=== PATIENT | female | born 1995 | race Caucasian/White ===

== ENCOUNTER 2019-09-15 03:08 | Emergency (ER) | payer BC ==
--- NOTE | 2019-09-15 03:12 | ERPHSYRPT ---
- History of Present Illness Time Seen by Provider: 09/15/19 03:11 Source: patient Exam Limitations: no limitations Physician History: 23 y/o white female presents with one day h/o left lower dental pain and associated swelling. pt could not get into her dentist. Timing/Duration: abrupt onset, days (1) ENT Location: dental Prearrival Treatment: over the counter meds Associated Symptoms: tooth pain Allergies/Adverse Reactions: No Known Drug Allergies Allergy (Verified 09/15/19 03:25) - Review of Systems Constitutional: No Symptoms Eyes: No Symptoms Ears, Nose, & Throat: Other (dental pain) Respiratory: No Symptoms Cardiac: No Symptoms Abdominal/Gastrointestinal: No Symptoms Genitourinary Symptoms: No Symptoms Musculoskeletal: No Symptoms Skin: No Symptoms Neurological: No Symptoms Psychological: No Symptoms Endocrine: No Symptoms Hematologic/Lymphatic: No Symptoms Immunological/Allergic: No Symptoms All Other Systems: Reviewed and Negative - Past Medical History Pertinent Past Medical History: Yes Neurological History: No Pertinent History ENT History: No Pertinent History Cardiac History: No Pertinent History Respiratory History: No Pertinent History Endocrine Medical History: No Pertinent History Musculoskeletal History: No Pertinent History GI Medical History: No Pertinent History History: No Pertinent History Psycho-Social History: No Pertinent History Female Reproductive Disorders: No Pertinent History - Past Surgical History Neuro Surgical History: No Pertinent History Cardiac: No Pertinent History Respiratory: No Pertinent History Gastrointestinal: No Pertinent History Genitourinary: No Pertinent History Musculoskeletal: No Pertinent History Female Surgical History: No Pertinent History - Nursing Vital Signs Nursing Vital Signs: Initial Vital Signs Temperature 98.2 F 09/15/19 03:17 Pulse Rate 77 09/15/19 03:17 Respiratory Rate 18 09/15/19 03:17 Blood Pressure 146/90 09/15/19 03:17 O2 Sat by Pulse Oximetry 99 09/15/19 03:17 Pain Scale Pain Intensity 8 - Physical Exam General Appearance: no apparent distress, alert, anxiety Eye Exam: bilateral eye: normal inspection, PERRL, EOMI Ear Exam: bilateral ear: auricle normal Nasal Exam: normal inspection Throat Exam: dental tenderness (left lower molars with mild left lower jaw swelling) Cardiovascular/Respiratory Exam: chest non-tender Abdominal Exam: non-tender Neurologic Exam: alert, oriented x 3, cooperative, 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 follow up with dentist for definitive care Prescriptions: Amoxicillin 500 mg Cap [Amoxil 500 mg] 500 mg PO TID #30 capsule
[2019-09-15 03:25] VITALS: O2SAT 99
[2019-09-15] MEDS ORDERED: AMOXIL 500 MG PO ONE (03:40)
[2019-09-15] MEDS ORDERED: PERCOCET TABLET 5/325MG PO STA (03:40)
[2019-09-15] MEDS ORDERED: AMOXIL 500 MG ONE ×2 (03:44→03:47)
[2019-09-15] MEDS ORDERED: PERCOCET TABLET 5/325MG ONE (03:44)
[2019-09-15 04:09] VITALS: BP 129/86; PULSE 74
== END 2019-09-15 04:08 | disposition home or self-care (01) ==
LOC: ED 03:08
DX: K04.7 Periapical abscess without sinus (principal)
CPT/HCPCS: 99283; A9270-GY

== ENCOUNTER 2023-04-15 10:18 | Emergency (ER) | payer OTHER ==
--- NOTE | 2023-04-15 10:30 | ERPHSYRPT ---
- History of Present Illness Time Seen by Provider: 04/15/23 10:30 Source: patient Exam Limitations: no limitations Physician History: This is an overweight 27-year-old white female patient of nurse practitioner Tony who presents with 2-day history of bruising of the left inner thigh that occurred during a softball game where the softball hit her in this area directly. In the subsequent 2 days there is been increased bruising but no increase in pain. It was a little warm but not red. She wanted to be evaluated here in the emergency room at the request of individuals at work. Patient denies chest pain. She has no shortness of breath. She has no history of any bleeding or clotting disorders. She is not on any blood thinning medicine. Occurred: days ago (2) Quality: other (Mild tenderness to palpation) Severity of Pain-Max: mild Severity of Pain-Current: mild Lower Extremities Pain: thigh: left (Medial aspect) Modifying Factors: Improves With: nothing Associated Symptoms: none Allergies/Adverse Reactions: No Known Drug Allergies Allergy (Verified 04/15/23 10:23) Home Medications: Sertraline HCl 50 mg [Zoloft 50 mg Tablet] 1 tab PO BID 04/15/23 [History] Hx Tetanus, Diphtheria Vaccination/Date Given: Yes Hx Influenza Vaccination/Date Given: Yes Hx Pneumococcal Vaccination/Date Given: No Travel Risk - International Travel Have you traveled outside of the country in past 3 weeks: No - Coronavirus Screening Are you exhibiting any of the following symptoms?: No Close contact with a COVID-19 positive Pt in past 14-21 Days: No - Review of Systems Constitutional: No Symptoms Eyes: No Symptoms Ears, Nose, & Throat: No Symptoms Respiratory: No Symptoms Cardiac: No Symptoms Abdominal/Gastrointestinal: No Symptoms Genitourinary Symptoms: No Symptoms Musculoskeletal: No Symptoms Skin: Other (Ecchymosis medial left thigh) Neurological: No Symptoms Psychological: No Symptoms Endocrine: No Symptoms Hematologic/Lymphatic: No Symptoms Immunological/Allergic: No Symptoms All Other Systems: Reviewed and Negative - Past Medical History Pertinent Past Medical History: Yes Neurological History: No Pertinent History ENT History: No Pertinent History Cardiac History: No Pertinent History Respiratory History: No Pertinent History Endocrine Medical History: No Pertinent History Musculoskeletal History: No Pertinent History GI Medical History: No Pertinent History History: No Pertinent History Psycho-Social History: No Pertinent History Female Reproductive Disorders: No Pertinent History - Past Surgical History Past Surgical History: Yes Neuro Surgical History: No Pertinent History Cardiac: No Pertinent History Respiratory: No Pertinent History Gastrointestinal: No Pertinent History Genitourinary: No Pertinent History Musculoskeletal: No Pertinent History Female Surgical History: No Pertinent History Other Surgical History: ear surgery - Social History Smoking Status: Former smoker Exposure to second hand smoke: No Drug Use: none Patient Lives Alone: No - Nursing Vital Signs Nursing Vital Signs: Initial Vital Signs Temperature 98.2 F 04/15/23 10:24 Pulse Rate 80 04/15/23 10:24 Respiratory Rate 18 04/15/23 10:24 Blood Pressure 160/95 04/15/23 10:24 O2 Sat by Pulse Oximetry 99 04/15/23 10:24 Pain Scale Pain Intensity 4 - Physical Exam General Appearance: no apparent distress, alert, obese Eyes, Ears, Nose, Throat Exam: normal ENT inspection, moist mucous membranes Neck Exam: normal inspection, non-tender, supple, full range of motion Cardiovascular/Respiratory Exam: chest non-tender, no respiratory distress Gastrointestinal/Abdominal Exam: non-tender Back Exam: normal inspection, normal range of motion, No CVA tenderness, No vertebral tenderness Hips Exam: bilateral: non-tender, normal inspection, normal range of motion, no evidence of injury Legs Exam: right leg: non-tender, normal inspection, no evidence of injury, left leg: ecchymosis (Superficial circular in various stages of healing. Mild tenderness to palpation. Localized and superficial), soft tissue tenderness (Mild localized to area of injury by softball), bilateral leg: normal range of motion Knees Exam: bilateral knee: non-tender, normal inspection, normal range of motion, no evidence of injury Ankle Exam: bilateral ankle: non-tender, normal inspection, normal range of motion, no evidence of injury Foot Exam: bilateral foot: non-tender, normal inspection, normal range of motion, no evidence of injury Neuro/Tendon Exam: normal sensation, normal motor functions, normal tendon functions Mental Status Exam: alert, oriented x 3, cooperative Skin Exam: ecchymosis (See above) O2 Delivery: Room Air - Course Nursing assessment & vital signs reviewed: Yes - Progress Progress: unchanged Progress Note: 04/15/23 11:07 This patient's medical issue is 1 of low complexity. The level of complexity and the work-up performed is based on review of the patient's past medical history, review of the patient's medication list, review of the patient's drug allergy list, history present illness and physical findings on examination. The patient declines laboratory work-up and radiographic work-up. I do not think this is unreasonable. On examination it appears as though the patient has a superficial area of ecchymosis that is localized in the area where she was injured by direct blow from a softball at high-speed. She might have a mild subcutaneous hematoma present. I do not feel that she has superficial phlebitis or a deep venous thrombosis. However, I did offer her both venous ultrasound to rule out a DVT and a prescription for oral antibiotics in case the area becomes red or cellulitic. She does not have cellulitis at this time. Patient declines both. Medical Desision Making - Diagnostic Testing Diagnostic test were ordered, analyzed, and reviewed by me: No - Risk of complications Minimal Risk: Minimal risk of morbidity - Departure Departure Disposition: Home Clinical Impression: Traumatic ecchymosis of left thigh, Superficial hematoma Condition: Stable Critical Care Time: No Referrals: BOBBY ESCALANTE NP [Primary Care Provider] - Follow up/PCP as directed Additional Instructions: May alternate ice and heat to this area every 6 hours while awake. Return to the emergency department or your primary care provider if there is increase in pain, increase in bruising, increase in swelling, you are having shortness of breath or chest pain.
[2023-04-15 11:20] VITALS: BP 124/73; PULSE 78; O2SAT 98
== END 2023-04-15 11:20 | disposition home or self-care (01) ==
LOC: ED 10:18
DX: S70.12XA Contusion of left thigh, initial encounter (principal); W21.07XA Struck by softball, initial encounter; Y93.64 Activity, baseball; Z79.899 Other long term (current) drug therapy
CPT/HCPCS: 99281